=== PATIENT | male | born 1935 | race Caucasian/White ===

== ENCOUNTER 2020-07-25 15:27 | Observation (INO) | payer OTHER ==
[~2020-07-25] VITALS: Ht 182.9 cm; Wt 76.4 kg
[~2020-07-25 15:27] MED LIST: ASPIRIN CHEWABL81 MG PO; ASPIRIN325 MG PO; DOXYCYCLINE100 M3 PO; FLEXERIL10 MG PO; HYDROCODONE BIT1 T11 PO; INDOCIN25 MG PO; LOMOTIL PO; MEDROL DOSEPAK4 MG PO; MOTRIN400 MG PO; NORCO 5-325 TA1 EACH PO; PHENERGAN25 M3 PO; PREDNISONE10 MG PO; PROTONIX40 MG PO; TENORMIN25 MG PO; TENORMIN50 MG PO; TERAZOSIN HCL10 M1 PO; Vicodin 5/500 505 MG PO; ZITHROMAX500 MG PO
[2020-07-25 15:37] VITALS: BP 151/86
[2020-07-25 16:00] LABS: BASO # 0.1 10*3/uL (0.0-0.1); BASO % 0.7 % (0.0-1.0); EOS # 0.3 10*3/uL (0.0-0.4); HEMATOCRIT 32.9 % (42.0-52.0); LYMPH # 1.4 10*3/uL (1.3-4.4); LYMPH % 17.1 % (27.0-41.0); MEAN CELL VOLUME 102.2 fl (80.0-94.0); MEAN CORPUSCULAR HGB 33.5 pg (27.0-31.0); MEAN CORPUSCULAR HGB CONC 32.8 g/dl (33.0-37.0); MEAN PLATELET VOLUME 11.9 fl (9.6-12.3); MONO # 0.8 10*3/uL (0.1-1.0); MONO % 9.4 % (3.0-9.0); NEUT # 5.6 10*3/uL (2.3-7.9); NEUT % 67.6 % (47.0-73.0); PLATELET COUNT AUTOMATED 208 10*3/uL (130-400); RED BLOOD COUNT 3.22 10*6/uL (4.50-5.90); RED CELL DISTRI WIDTH 14.7 % (0-14.5); WHITE BLOOD COUNT 8.3 10*3/uL (4.8-10.8)
[2020-07-25 16:13] LABS: ACT PARTIAL THROMBO TIME 26.7 SECONDS (20.0-32.1)
[2020-07-25 16:14] LABS: ALBUMIN 2.6 gm/dl (3.1-4.5); CREATININE 2.1 mg/dL (0.70-1.30)
[2020-07-25 18:00] VITALS: BP 136/75
[2020-07-25 20:47] VITALS: BP 141/62
[2020-07-25 21:08] VITALS: BP 151/62
[2020-07-25] MEDS ORDERED: ALLOPURINOL300 MG PO (21:46)
[2020-07-26] VITALS: BP 145/63
[2020-07-26 06:27] LABS: BASO # 0.1 10*3/uL (0.0-0.1); BASO % 0.8 % (0.0-1.0); EOS # 0.4 10*3/uL (0.0-0.4); EOS % 6.7 % (1.0-4.0); HEMATOCRIT 29.7 % (42.0-52.0); LYMPH # 1.4 10*3/uL (1.3-4.4); LYMPH % 23.1 % (27.0-41.0); MEAN CELL VOLUME 103.1 fl (80.0-94.0); MEAN CORPUSCULAR HGB 33.3 pg (27.0-31.0); MEAN CORPUSCULAR HGB CONC 32.3 g/dl (33.0-37.0); MONO # 0.6 10*3/uL (0.1-1.0); MONO % 9.8 % (3.0-9.0); NEUT # 3.6 10*3/uL (2.3-7.9); NEUT % 58.1 % (47.0-73.0); PLATELET COUNT AUTOMATED 172 10*3/uL (130-400); RED BLOOD COUNT 2.88 10*6/uL (4.50-5.90); RED CELL DISTRI WIDTH 14.7 % (0-14.5); WHITE BLOOD COUNT 6.2 10*3/uL (4.8-10.8)
[2020-07-26 07:08] LABS: CREATININE 1.8 mg/dL (0.70-1.30); FREE T4 0.9 ng/dl (0.76-1.46); POTASSIUM 3.7 mmol/L (3.5-5.1)
[2020-07-26 07:14] LABS: THYROID STIM HORMONE (HS) 1.19 uIU/ml (0.358-4.75)
[2020-07-26 08:00] VITALS: BP 154/97
[2020-07-26 12:00] VITALS: BP 117/50
[2020-07-26 16:00] VITALS: BP 133/63
[2020-07-26 20:00] VITALS: BP 132/72
[2020-07-27] VITALS: BP 136/66
[2020-07-27 08:00] VITALS: BP 131/53
[2020-07-27 08:51] LABS: BODY FLUID WBC 2060 /uL
[2020-07-27 10:00] LABS: BF LYMPHOCYTES 2 %; BF MACROPHAGES 26 %; BF NEUTROPHILS 72 %
[2020-07-27 12:00] VITALS: BP 141/46
[2020-07-27 16:00] VITALS: BP 144/52
[2020-07-27 20:00] VITALS: BP 135/58
[2020-07-28] VITALS: BP 141/56
[2020-07-28 08:00] VITALS: BP 108/76
[2020-07-28] MEDS ORDERED: PREDNISONE20 M1 PO (09:58)
== END 2020-07-28 11:21 | disposition home or self-care (01) ==
LOC: ED 15:27 → EDHOLD 17:54 → 5E 17:54 → EDHOLD 17:54 → 5E 19:56
PROVIDERS: Nurse Practitioner; Orthopaedic Surgery; Student in an Organized Health Care Education/Training Program; ADMIT Internal Medicine; ATTEND Internal Medicine
DX: M10.9 Gout, unspecified (principal); R60.0 Localized edema; M25.462 Effusion, left knee; R26.2 Difficulty in walking, not elsewhere classified; E55.9 Vitamin D deficiency, unspecified; L03.116 Cellulitis of left lower limb; N40.0 Benign prostatic hyperplasia without lower urinary tract symptoms; I12.9 Hypertensive chronic kidney disease with stage 1 through stage 4 chronic kidney disease, or unspecified chronic kidney disease; N18.32 Chronic kidney disease, stage 3b; D63.1 Anemia in chronic kidney disease; E87.8 Other disorders of electrolyte and fluid balance, not elsewhere classified; D53.9 Nutritional anemia, unspecified; E43 Unspecified severe protein-calorie malnutrition; K52.9 Noninfective gastroenteritis and colitis, unspecified; R00.1 Bradycardia, unspecified; J44.9 Chronic obstructive pulmonary disease, unspecified; E87.2 Acidosis; R09.1 Pleurisy; D69.6 Thrombocytopenia, unspecified; R53.1 Weakness; Z98.890 Other specified postprocedural states; Z87.891 Personal history of nicotine dependence

== ENCOUNTER 2021-03-12 21:56 | Inpatient (IN) | payer OTHER ==
[~2021-03-12] VITALS: Ht 167.6 cm; Wt 74.0 kg
[~2021-03-12 21:56] MED LIST changes: +ALLOPURINOL300 MG PO; +PREDNISONE20 M1 PO
[2021-03-12 22:03] VITALS: BP 117/51
[2021-03-12 22:30] VITALS: BP 129/59
[2021-03-12 22:32] LABS: BASO # 0.1 10*3/uL (0.0-0.1); BASO % 0.8 % (0.0-1.0); EOS # 0.3 10*3/uL (0.0-0.4); EOS % 3.9 % (1.0-4.0); HEMATOCRIT 36.9 % (42.0-52.0); LYMPH # 1.1 10*3/uL (1.3-4.4); LYMPH % 14.9 % (27.0-41.0); MEAN CELL VOLUME 99.5 fl (80.0-94.0); MEAN CORPUSCULAR HGB 32.6 pg (27.0-31.0); MEAN CORPUSCULAR HGB CONC 32.8 g/dl (33.0-37.0); MEAN PLATELET VOLUME 14.5 fl (9.6-12.3); MONO # 0.5 10*3/uL (0.1-1.0); MONO % 6.3 % (3.0-9.0); NEUT # 5.5 10*3/uL (2.3-7.9); NEUT % 73.8 % (47.0-73.0); PLATELET COUNT AUTOMATED 126 10*3/uL (130-400); RED BLOOD COUNT 3.71 10*6/uL (4.50-5.90); RED CELL DISTRI WIDTH 15.4 % (0-14.5); WHITE BLOOD COUNT 7.5 10*3/uL (4.8-10.8)
[2021-03-12 22:48] VITALS: BP 106/74
[2021-03-12 22:49] LABS: ALBUMIN 3.3 gm/dl (3.1-4.5); ALKALINE PHOSPHATASE 96 U/L (45-117); BUN 32 mg/dl (7-24); CHLORIDE 111 mmol/L (98-107); CREATININE 1.97 mg/dL (0.70-1.30); LIPASE 123 U/L (73-393); POTASSIUM 3.6 mmol/L (3.5-5.1); SGOT/AST 17 IU/L (3-35); SGPT/ALT 18 U/L (12-78); SODIUM 141 mmol/L (136-145)
[2021-03-12 23:41] VITALS: BP 127/45
[2021-03-13] VITALS (9 sets, daily range): BP systolic 147–172; BP diastolic 61–82
[2021-03-13 03:51] LABS: BASO % 0.4 % (0.0-1.0); EOS % 0.1 % (1.0-4.0); HEMATOCRIT 35.2 % (42.0-52.0); LYMPH # 0.4 10*3/uL (1.3-4.4); LYMPH % 5.1 % (27.0-41.0); MEAN CELL VOLUME 98.9 fl (80.0-94.0); MEAN CORPUSCULAR HGB 32.9 pg (27.0-31.0); MEAN CORPUSCULAR HGB CONC 33.2 g/dl (33.0-37.0); MEAN PLATELET VOLUME 14.4 fl (9.6-12.3); MONO # 0.6 10*3/uL (0.1-1.0); MONO % 7.2 % (3.0-9.0); NEUT # 7.2 10*3/uL (2.3-7.9); PLATELET COUNT AUTOMATED 113 10*3/uL (130-400); RED BLOOD COUNT 3.56 10*6/uL (4.50-5.90); RED CELL DISTRI WIDTH 15.2 % (0-14.5); WHITE BLOOD COUNT 8.3 10*3/uL (4.8-10.8)
[2021-03-13 04:01] LABS: CREATININE 1.71 mg/dL (0.70-1.30); POTASSIUM 4.2 mmol/L (3.5-5.1)
[2021-03-13 06:31] LABS: TOTAL PROTEIN 8.3 gm/dL (6.4-8.2)
[2021-03-13] MEDS ORDERED: ZOSYN 3.373.375 GM/1 IV (14:57)
[2021-03-14] VITALS: BP 138/56
[2021-03-14 06:35] LABS: BASO % 0.5 % (0.0-1.0); EOS # 0.3 10*3/uL (0.0-0.4); EOS % 4.2 % (1.0-4.0); HEMATOCRIT 36.8 % (42.0-52.0); LYMPH # 1.1 10*3/uL (1.3-4.4); LYMPH % 14.5 % (27.0-41.0); MEAN CELL VOLUME 100.8 fl (80.0-94.0); MEAN CORPUSCULAR HGB 32.6 pg (27.0-31.0); MEAN CORPUSCULAR HGB CONC 32.3 g/dl (33.0-37.0); MONO # 0.8 10*3/uL (0.1-1.0); MONO % 10.4 % (3.0-9.0); NEUT # 5.4 10*3/uL (2.3-7.9); NEUT % 70.3 % (47.0-73.0); PLATELET COUNT AUTOMATED 119 10*3/uL (130-400); RED BLOOD COUNT 3.65 10*6/uL (4.50-5.90); RED CELL DISTRI WIDTH 15.8 % (0-14.5); WHITE BLOOD COUNT 7.7 10*3/uL (4.8-10.8)
[2021-03-14 06:45] LABS: CREATININE 1.82 mg/dL (0.70-1.30); POTASSIUM 4.3 mmol/L (3.5-5.1)
[2021-03-14 08:00] VITALS: BP 151/67
[2021-03-14 12:00] VITALS: BP 140/64
[2021-03-14 16:00] VITALS: BP 142/65
== END 2021-03-14 20:00 | disposition home or self-care (01) | DRG 871 ==
LOC: ED 21:56 → EDHOLD 03-13 00:42 → 5E 03-13 17:55
PROVIDERS: Internal Medicine; Student in an Organized Health Care Education/Training Program; ADMIT Internal Medicine; ATTEND Internal Medicine
PROC: 0D9670Z Drainage of Stomach with Drainage Device, Via Natural or Artificial Opening (ICD-10-PCS; principal; 2021-03-13)
DX: A41.9 Sepsis, unspecified organism (principal); N17.0 Acute kidney failure with tubular necrosis; K81.0 Acute cholecystitis; E44.0 Moderate protein-calorie malnutrition; K51.90 Ulcerative colitis, unspecified, without complications; K56.699 Other intestinal obstruction unspecified as to partial versus complete obstruction; K40.00 Bilateral inguinal hernia, with obstruction, without gangrene, not specified as recurrent; N18.32 Chronic kidney disease, stage 3b; R65.20 Severe sepsis without septic shock; N20.0 Calculus of kidney; D53.9 Nutritional anemia, unspecified; D69.6 Thrombocytopenia, unspecified; E87.8 Other disorders of electrolyte and fluid balance, not elsewhere classified; R73.9 Hyperglycemia, unspecified; N40.0 Benign prostatic hyperplasia without lower urinary tract symptoms; I12.9 Hypertensive chronic kidney disease with stage 1 through stage 4 chronic kidney disease, or unspecified chronic kidney disease; Z88.8 Allergy status to other drugs, medicaments and biological substances; Z82.49 Family history of ischemic heart disease and other diseases of the circulatory system; Z79.82 Long term (current) use of aspirin; Z79.899 Other long term (current) drug therapy; Z68.26 Body mass index [BMI] 26.0-26.9, adult

== ENCOUNTER → 2022-02-16 | Emergency (ER) | payer OTHER ==
[~2022-02-16] VITALS: Wt 73.9 kg
[~2022-02-16] MED LIST changes: +ZOSYN 3.373.375 GM/1 IV
[2022-02-16 08:14] LABS: BASO # 0.1 10*3/uL (0.0-0.1); BASO % 0.6 % (0.0-1.0); EOS # 0.3 10*3/uL (0.0-0.4); EOS % 2.6 % (1.0-4.0); HEMATOCRIT 34.4 % (42.0-52.0); LYMPH # 0.8 10*3/uL (1.3-4.4); LYMPH % 7.8 % (27.0-41.0); MEAN CELL VOLUME 101.5 fl (80.0-94.0); MEAN CORPUSCULAR HGB 34.8 pg (27.0-31.0); MEAN CORPUSCULAR HGB CONC 34.3 g/dl (33.0-37.0); MEAN PLATELET VOLUME 13.8 fl (9.6-12.3); MONO # 0.6 10*3/uL (0.1-1.0); MONO % 5.8 % (3.0-9.0); NEUT # 8.5 10*3/uL (2.3-7.9); NEUT % 82.7 % (47.0-73.0); PLATELET COUNT AUTOMATED 142 10*3/uL (130-400); RED BLOOD COUNT 3.39 10*6/uL (4.50-5.90); RED CELL DISTRI WIDTH 15.8 % (0-14.5); WHITE BLOOD COUNT 10.3 10*3/uL (4.8-10.8)
[2022-02-16 08:23] LABS: ACT PARTIAL THROMBO TIME 21.9 SECONDS (20.0-32.1)
[2022-02-16 08:34] LABS: CREATININE 2.59 mg/dL (0.70-1.30); POTASSIUM 4.4 mmol/L (3.5-5.1); TOTAL PROTEIN 8.5 gm/dL (6.4-8.2)
[2022-02-16 12:29] LABS: BILIRUBIN Negative (Negative); BLOOD 1+ (Negative); CLARITY Clear (Clear); COLOR Yellow (Yellow); GLUCOSE Negative (Negative); KETONE Negative (Negative); LEUKO ESTERASE 1+ (Negative); NITRITE Negative (Negative); PH 5.5 (4.5-8.0); UROBILINOGEN 0.2 E.U./dl (0.0-1.0)
[2022-02-16 12:38] LABS: BACTERIA 1+; MUCOUS TRACE
[2022-02-16 15:43] VITALS: BP 104/48
== END ==
LOC: ED 07:36
PROVIDERS: Family Medicine
DX: N20.0 Calculus of kidney (principal); Z88.8 Allergy status to other drugs, medicaments and biological substances; Z79.899 Other long term (current) drug therapy; Z79.82 Long term (current) use of aspirin; Z87.891 Personal history of nicotine dependence; Z98.890 Other specified postprocedural states

== ENCOUNTER 2022-12-01 14:36 | Emergency (ER) | payer OTHER ==
[~2022-12-01] VITALS: Ht 180.3 cm; Wt 74.8 kg
[~2022-12-01 14:36] MED LIST changes: +LEVOFLOXACIN750 M2 PO
[2022-12-01 15:32] VITALS: BP 118/95
== END 2022-12-01 18:19 | disposition home or self-care (01) ==
LOC: ED 14:36
DX: S22.31XA Fracture of one rib, right side, initial encounter for closed fracture (principal); I10 Essential (primary) hypertension; M10.9 Gout, unspecified; Z87.442 Personal history of urinary calculi; Z88.8 Allergy status to other drugs, medicaments and biological substances; Z98.890 Other specified postprocedural states; Z87.891 Personal history of nicotine dependence; X50.1XXA Overexertion from prolonged static or awkward postures, initial encounter; Y93.89 Activity, other specified; Y92.89 Other specified places as the place of occurrence of the external cause; Y99.8 Other external cause status

== ENCOUNTER 2023-05-06 15:23 | Emergency (ER) | payer OTHER ==
[~2023-05-06] VITALS: Ht 182.8 cm; Wt 75.7 kg
[2023-05-06 15:36] VITALS: BP 116/55
[2023-05-06] MEDS ORDERED: HYDROCODONE-AC1 EAC1 PO (21:49)
== END 2023-05-06 22:52 | disposition home or self-care (01) ==
LOC: ED 15:23
DX: S22.41XA Multiple fractures of ribs, right side, initial encounter for closed fracture (principal); M25.512 Pain in left shoulder; I12.9 Hypertensive chronic kidney disease with stage 1 through stage 4 chronic kidney disease, or unspecified chronic kidney disease; N18.30 Chronic kidney disease, stage 3 unspecified; E46 Unspecified protein-calorie malnutrition; Z88.8 Allergy status to other drugs, medicaments and biological substances; Z79.899 Other long term (current) drug therapy; Z87.442 Personal history of urinary calculi; Z98.890 Other specified postprocedural states; Z93.2 Ileostomy status; Z87.891 Personal history of nicotine dependence; X58.XXXA Exposure to other specified factors, initial encounter; Y93.89 Activity, other specified; Y92.89 Other specified places as the place of occurrence of the external cause; Y99.8 Other external cause status